=== PATIENT | male | born 1965 | race Caucasian/White ===

== ENCOUNTER 2025-02-01 12:00 | Inpatient (IN) | payer OTHER ==
[2025-04-03] MEDS ORDERED: Bupivacaine/Epinephrine 0.25% 30 ML VIAL ONE ×2 (06:33)
[2025-04-03] MEDS ORDERED: Dextrose 50% Abboject 50 ML SYRINGE SLOW IVP PRN (14:00)
[2025-04-03] MEDS ORDERED: Glucagon 1 MG/ML KIT IM PRN (14:00)
[2025-04-03] MEDS: D5 1/2 NS w/20 mEq KCL 1,000 ML IV SCH (16:05)
[2025-04-03] MEDS: Ketorolac Tromethamine 30 MG (1 mL) VIAL IVP SCH (17:18)
[2025-04-03] MEDS: Ondansetron PF 4 MG/2 ML Vial IVP PRN (17:18)
[2025-04-03] MEDS: hydrALAZINE 20 MG/ML VIAL SLOW IVP PRN (17:50)
[2025-04-03] MEDS: Famotidine/PF 20 mg/2ml Vial SLOW IVP SCH (22:25)
[2025-04-04] MEDS: Enoxaparin 40 MG (0.4 mL) SYRINGE SC SCH (08:10)
[2025-04-04] MEDS: HYDROcodone/Acetaminophen 7.5/325 mg Tablet PO PRN (13:00)
[2025-04-04] MEDS ORDERED: HYDROcodone/Acetaminophen 7.5/325 mg Tablet PO PRN (13:38)
[2025-04-05 15:12] VITALS: BP 162/82; TEMP 98.2
== END 2025-04-05 16:14 | disposition home or self-care (01) | DRG 331 ==
LOC: INTOOBSV 04-03 05:36 → CSHTELE 04-03 05:36 → OBSVTOIN 04-03 13:35 → CSHTELE 04-03 14:46
PROVIDERS: ADMIT Surgery; ATTEND Surgery
PROC: 0DTF0ZZ Resection of Right Large Intestine, Open Approach (ICD-10-PCS; principal; 2025-04-03)
PROC: 8E0W0CZ Robotic Assisted Procedure of Trunk Region, Open Approach (ICD-10-PCS; 2025-04-03)
DX: K63.89 Other specified diseases of intestine (principal); K63.5 Polyp of colon; Z79.899 Other long term (current) drug therapy; Z79.51 Long term (current) use of inhaled steroids
CPT/HCPCS: 36416; 88307; 94760; C1889; J0360; J0694; J1308; J1650; J1815; J1885; J2270; J2405; J3480; S2900

== ENCOUNTER 2025-03-28 10:20 | Outpatient (CLI) | payer OTHER ==
[2025-03-28 10:59] LABS: Hematocrit 44.5 % (38.8-50.0); Hemoglobin 14.5 g/dL (13.5-17.5); Mean Corpuscular Hemoglobin 30.9 pg (27.0-33.0); Mean Corpuscular Volume 94.9 fL (81.2-95.1); Platelet Count 226 10x3/uL (150-450); Red Blood Cell (RBC) Count 4.69 10x6/uL (4.32-5.72); White Blood Cell (WBC) Count 6.87 10x3/uL (3.5-10.5)
[2025-03-28 11:13] LABS: Anion Gap 15 mmol/L (10-20); BUN (Urea Nitrogen) 24 mg/dL (8.4-25.7); Calc. Creatinine Clearance 0 mL/min (70-130); Calcium 9.3 mg/dL (7.8-10.44); Carbon Dioxide 24 mmol/L (22-29); Chloride 106 mmol/L (98-107); Glucose 120 mg/dL (70-105); Potassium 4.5 mmol/L (3.5-5.1); Sodium 140 mmol/L (136-145)
== END 2025-03-28 10:21 | disposition home or self-care (01) ==
LOC: CSHLAB 10:20
PROVIDERS: ATTEND Surgery
DX: Z01.812 Encounter for preprocedural laboratory examination (principal); K63.89 Other specified diseases of intestine
CPT/HCPCS: 80048; 85027